=== PATIENT | male | born 1985 | race Two or more races ===

== ENCOUNTER 2018-02-07 20:39 | Emergency (ER) | payer BC ==
[2018-02-07] MEDS ORDERED: Famotidine TAB* 20 MG PO ONE (20:48)
[2018-02-07] MEDS ORDERED: Sucralfate TAB* 1 GM PO ONE (20:49)
[2018-02-07] MEDS ORDERED: Lidocaine 2% VISCOUS* 15 ML UDC PO ONE (20:49)
[2018-02-07 21:35] LABS: ABS Basophils 0 10^3/ul (0-0.2); ABS Eosinophils 0.1 10^3/ul (0-0.6); ABS Lymphocytes 2.2 10^3/ul (1.0-4.8); ABS Monocytes 0.8 10^3/ul (0-0.8); ABS Neutrophils 7.3 10^3/ul (1.5-7.7); ABS Nucleated RBC 0 10^3/ul; Eosinophil % 1.1 %; Hematocrit 47 % (42-52); Hemoglobin 15.7 g/dl (14.0-18.0); Lymphocyte % 20.7 %; Mean Corpuscular HGB Conc 34 g/dl (31-36); Mean Corpuscular Hemoglobin 30 pg (27-31); Mean Corpuscular Volume 88 fL (80-94); Mean Platelet Volume 9.1 fL (7.4-10.4); Nucleated Red Blood Cells % 0.1; Platelet Count 211 10^3/ul (150-450); Red Blood Count 5.28 10^6/ul (4.00-5.40); Red Cell Distribution Width 14 % (10.5-15); White Blood Count 10.5 10^3/ul (3.5-10.8)
[2018-02-07 21:53] LABS: Albumin/Globulin Ratio 1.2 (1-3); BUN/Creatinine Ratio 17.3 (8-20); C Reactive Protein 64.65 mg/L (<8.01); Calcium 9.2 mg/dL (8.6-10.3); EGFR Non-African American 83.3 (>60); Globulin 3.4 g/dL (2-4); Potassium 3.6 mmol/L (3.5-5.0); Total Bilirubin 0.5 mg/dL (0.2-1.0); Total Protein 7.4 g/dL (6.4-8.9)
--- NOTE | 2018-02-07 21:54 | ED ---
Abdominal Pain/Male - HPI Summary HPI Summary: Pt is a 32 y/o male who presents to the ED c/o abdominal pain. He has had intermittent abdominal discomfort for the past week. Pt initially thought it was a stomach bug, since hes had some cold symptoms. He had a cough earlier this week that resolved. At 14:30 today, he suddenly had sharp epigastric pain, rated a 9/10 in severity. He also notes that yesterday he slipped in the mud and landed on his stomach, and thinks his current pain may be related. Pt denies any bruising or heartburn symptoms. He denies any recent alcohol use. Pt denies any hx of abdominal surgeries. - History of Current Complaint Chief Complaint: EDAbdPain Stated Complaint: ABD PAIN Time Seen by Provider: 02/07/18 20:49 Hx Obtained From: Patient Onset/Duration: Gradual Onset, Lasting Weeks - 1, Worse Since Timing: Intermittent Severity Initially: Mild Severity Currently: Severe Pain Intensity: 9 Pain Scale Used: 0-10 Numeric Location: Epigastric Radiates: No Character: Sharp Aggravating Factor(s): Nothing Alleviating Factor(s): Nothing Associated Signs And Symptoms: Positive: Negative - Allergies/Home Medications Allergies/Adverse Reactions: Allergies Allergy/AdvReac Type Severity Reaction Status Date / Time No Known Allergies Allergy Verified 02/07/18 20:45 Home Medications: Home Medications amLODIPine TAB* [Norvasc 5 mg TAB*] 5 mg PO DAILY 02/07/18 [History Confirmed ] PMH/Surg Hx/FS Hx/Imm Hx Endocrine/Hematology History: Denies: Hx Diabetes Cardiovascular History: Denies: Hx Hypertension Infectious Disease History: No Infectious Disease History: Denies: Traveled Outside the [place] in Last 30 Days - Family History Known Family History: Negative: Other - pancreatic disease, ulcer disease - Social History Alcohol Use: Occasionally Hx Substance Use: No Substance Use Type: Reports: None Hx Tobacco Use: No Smoking Status (MU): Never Smoked Tobacco Review of Systems Positive: Cough Positive: Abdominal Pain Negative: Bruising All Other Systems Reviewed And Are Negative: Yes Physical Exam - Summary Physical Exam Summary: Appearance: Well appearing, no pain distress Skin: warm, dry, reflects adequate perfusion Head/face: normal Eyes: EOMI, YOLANDE ENT: mucous membranes moist Neck: supple, non-tender Respiratory: CTA, breath sounds present Cardiovascular: RRR, pulses symmetrical, no LE edema Abdomen: soft, epigastric tenderness, no RUQ tenderness, no rebound Bowel Sounds: present Musculoskeletal: normal, strength/ROM intact Neuro: normal, sensory motor intact, A&Ox3 Triage Information Reviewed: Yes Vital Signs On Initial Exam: Initial Vitals Temp Pulse Resp BP Pulse Ox 97.8 F 102 16 136/81 94 02/07/18 20:41 02/07/18 20:41 02/07/18 20:41 02/07/18 20:41 02/07/18 20:41 Vital Signs Reviewed: Yes Diagnostics - Vital Signs Vital Signs Temp Pulse Resp BP Pulse Ox 02/07/18 21:19 92 123/57 93 02/07/18 21:18 95 95 02/07/18 20:41 97.8 F 102 16 136/81 94 - Laboratory Lab Results: Lab Results 02/07/18 Range/Units 21:28 WBC 10.5 (3.5-10.8) 10^3/ul RBC 5.28 (4.00-5.40) 10^6/ul Hgb 15.7 (14.0-18.0) g/dl Hct 47 (42-52) % MCV 88 (80-94) fL MCH 30 (27-31) pg MCHC 34 (31-36) g/dl RDW 14 (10.5-15) % Plt Count 211 (150-450) 10^3/ul MPV 9.1 (7.4-10.4) fL Neut % (Auto) 70.0 % Lymph % (Auto) 20.7 % Dade % (Auto) 7.9 % Eos % (Auto) 1.1 % Baso % (Auto) 0.3 % Absolute Neuts (auto) 7.3 (1.5-7.7) 10^3/ul Absolute Lymphs (auto) 2.2 (1.0-4.8) 10^3/ul Absolute Monos (auto) 0.8 (0-0.8) 10^3/ul Absolute Eos (auto) 0.1 (0-0.6) 10^3/ul Absolute Basos (auto) 0 (0-0.2) 10^3/ul Absolute Nucleated RBC 0 10^3/ul Nucleated RBC % 0.1 Result Diagrams: 02/07/18 21:28 02/07/18 21:28 Lab Statement: Any lab studies that have been ordered have been reviewed, and results considered in the medical decision making process. Re-Evaluation - Re-Evaluation First Eval Re-Evaluation Time: 22:05 Change: Improved Comment: Pt feels better after medications. Abdominal Pain Fem Course/Dx - Course Course Of Treatment: Nurse's notes reviewed. Epigastric discomfort not caused by alcohol or NSAIDs. CMP and lipase are normal. Patient was treated with GI medications with complete relief. He will be continued on same outpatient. Likely gastritis. No signs of peptic ulcer disease presently. Follow-up with primary care physician. Assessment/Plan: Assessment: Gastritis. Plan: Continue GI medications - Diagnoses Differential Diagnosis/HQI/PQRI: Constipation, Gall Bladder Disease, Pancreatitis, Peptic Ulcer Disease Provider Diagnoses: Acute gastritis Discharge - Sign-Out/Discharge Documenting (check all that apply): Patient Departure - Discharge - Discharge Plan Condition: Improved Disposition: HOME Prescriptions: Famotidine TAB* [Pepcid 20 MG TAB*] 20 mg PO BID #20 tab Omeprazole CAP* [Prilosec CAP* 20 MG] 20 mg PO BID #60 cap. Sucralfate [Carafate] 1 gm PO ACHS #60 tablet Patient Education Materials: Gastritis (ED) Forms: *Work Release Referrals: [facility] [place] [facility] [Outside] Additional Instructions: Call your doctor in [place] first thing in the morning to schedule prompt follow- up. If this continues she may need an appointment with a GI doctor. Return with dark stools, vomiting blood, worsened pain, new symptoms or other concerns as discussed. - Billing Disposition and Condition Condition: IMPROVED Disposition: Home - Attestation Statements Document Initiated by Adrielibtyler: Yes Documenting Scribe: Kaykay Duron Provider For Whom Gabe is Documenting (Include Credential): Ash Anguiano MD Scribe Attestation: Kaykay Manley scribed for Ash Anguiano MD on 02/08/18 at 0037. Scribe Documentation Reviewed: Yes Provider Attestation: The documentation as recorded by the Kaykay garcia accurately reflects the service I personally performed and the decisions made by me, Ash Anguiano MD Status of Scribe Document: Viewed
[2018-02-07 22:38] VITALS: BP 105/61
== END 2018-02-07 22:39 | disposition home or self-care (01) ==
LOC: ED 20:39
DX: K29.00 Acute gastritis without bleeding (principal); R05 Cough
CPT/HCPCS: 36415; 80053; 83605; 83690; 85025; 86140; 99283; A9270-GY